=== PATIENT | male | born 1995 | race Two or more races ===

== ENCOUNTER → 2016-09-11 | Outpatient (REF) | payer OTHER | LOC: M SFHCPLAZ 11:02 | PROVIDERS: ATTEND Family Medicine | DX: F41.8 Other specified anxiety disorders (principal) ==

== ENCOUNTER → 2016-09-27 | Outpatient (REF) | payer OTHER ==
[2016-09-27 14:22] LABS: CONTROL LINE HPYORI INT CTR LINE PRESENT
== END ==
LOC: M SFHCPLAZ 11:13
PROVIDERS: ATTEND Family Medicine
DX: R10.13 Epigastric pain (principal)

== ENCOUNTER → 2017-01-31 | Outpatient (REF) | payer OTHER ==
[2017-01-31 16:23] LABS: ALBUMIN 4.8 GM/DL (3.2-5.2); ALBUMIN/GLOBULIN RATIO 1.55 (1.00-1.93); ALKALINE PHOSPHATASE 59 U/L (45-117); ALT/SGPT 18 U/L (12-78); ANION GAP 6 MEQ/L (8-16); AST/SGOT 13 U/L (15-37); BILIRUBIN,TOTAL 0.7 MG/DL (0.2-1.0); BLOOD UREA NITROGEN 11 MG/DL (7-18); CALCIUM LEVEL 9.6 MG/DL (8.5-10.1); CARBON DIOXIDE LEVEL 30 MEQ/L (21-32); CHLORIDE LEVEL 105 MEQ/L (98-107); CREATININE FOR GFR 1.04 MG/DL (0.70-1.30); GLOMERULAR FILTRATION RATE > 60.0 (>60); GLUCOSE, FASTING 79 MG/DL (70-105); POTASSIUM SERUM 4.6 MEQ/L (3.5-5.1); SODIUM LEVEL 141 MEQ/L (136-145); TOTAL PROTEIN 7.9 GM/DL (6.4-8.2)
== END ==
LOC: M SFHCPLAZ 14:09
PROVIDERS: ATTEND Family Medicine
DX: F41.8 Other specified anxiety disorders (principal)

== ENCOUNTER → 2017-09-10 | Outpatient (REF) | payer OTHER ==
[2017-09-10 18:02] LABS: ALBUMIN 4.3 GM/DL (3.2-5.2); ALBUMIN/GLOBULIN RATIO 1.59 (1.00-1.93); ALKALINE PHOSPHATASE 60 U/L (45-117); ALT/SGPT 19 U/L (12-78); ANION GAP 7 MEQ/L (8-16); AST/SGOT 14 U/L (7-37); BILIRUBIN,TOTAL 0.3 MG/DL (0.2-1.0); BLOOD UREA NITROGEN 12 MG/DL (7-18); CARBON DIOXIDE LEVEL 28 MEQ/L (21-32); CHLORIDE LEVEL 109 MEQ/L (98-107); GLOMERULAR FILTRATION RATE > 60.0 (>60); GLUCOSE, FASTING 67 MG/DL (70-100); POTASSIUM SERUM 4.5 MEQ/L (3.5-5.1); SODIUM LEVEL 144 MEQ/L (136-145)
== END ==
LOC: M SFHCPLAZ 16:05
DX: R74.8 Abnormal levels of other serum enzymes (principal)
CPT/HCPCS: 80053

== ENCOUNTER 2018-12-23 14:39 | Day surgery (SDC) | payer OTHER ==
[~2018-12-23] VITALS: Ht 175.3 cm; Wt 76.4 kg
[2018-12-23] MEDS ORDERED: DULO1CAP PO (14:47)
[2018-12-23 15:28] LABS: BASO % 0.3 % (0.0-1.0); EOS # 0.1 10^3/uL (0.0-0.50); EOS % 0.6 % (0.0-3.0); HEMATOCRIT 45.4 % (42.0-52.0); HEMOGLOBIN 15.4 g/dl (13.5-17.5); LYMPH # 2.4 10^3/uL (1.5-6.5); LYMPH % 21.6 % (24.0-44.0); MEAN CORPUSCULAR HEMOGLOBIN 30.1 pg (27.0-33.0); MEAN CORPUSCULAR HGB CONC 33.9 g/dl (32.0-36.5); MEAN CORPUSCULAR VOLUME 88.8 fl (80.0-96.0); NEUTROPHILS # 7.4 10^3/uL (1.8-7.7); NEUTROPHILS % 68.2 % (36.0-66.0); PLATELET COUNT, AUTOMATED 219 10^3/uL (150-450); RED BLOOD COUNT 5.11 10^6/uL (4.30-6.10); WHITE BLOOD COUNT 10.9 10^3/uL (4.0-10.0)
[2018-12-23 15:58] LABS: ALBUMIN 4.4 GM/DL (3.2-5.2); ALT/SGPT 31 U/L (12-78); BILIRUBIN,DIRECT 0.2 MG/DL (0.0-0.2); BILIRUBIN,TOTAL 0.8 MG/DL (0.2-1.0); BLOOD UREA NITROGEN 11 MG/DL (7-18); CALCIUM LEVEL 9.6 MG/DL (8.5-10.1); CARBON DIOXIDE LEVEL 28 MEQ/L (21-32); CHLORIDE LEVEL 105 MEQ/L (98-107); CREATININE FOR GFR 1.08 MG/DL (0.70-1.30); GLOMERULAR FILTRATION RATE > 60.0 (>60); GLUCOSE, FASTING 89 MG/DL (70-100); LIPASE 98 U/L (73-393); POTASSIUM SERUM 4.1 MEQ/L (3.5-5.1); SODIUM LEVEL 141 MEQ/L (136-145); TOTAL PROTEIN 7.5 GM/DL (6.4-8.2)
[2018-12-23] MEDS ORDERED: ISOVUE-370 76% 100ML VIAL (Q9967) As Ordered ONE (16:05)
[2018-12-23] MEDS ORDERED: KETOROLAC 30 MG/ML VIAL (J1885) IV ONE (16:15)
[2018-12-23] MEDS ORDERED: ONDANSETRON 4MG/2ML VIAL (J2405) IV ONE (16:15)
[2018-12-23] MEDS ORDERED: NS 1,000 ML IV ONE (16:15)
--- NOTE | 2018-12-23 17:44 | REP ---
Clinical: Right lower quadrant pain. Technique: Real time cutler scale and color evaluation using curved array transducer. Findings: A dilated blind ending tubular structure in the right lower quadrant measures greater than 9 mm diameter with adjacent free fluid and small adjacent calcification. Findings are most suggestive of acute appendicitis and possibly ruptured appendicitis with adjacent appendicolith and fluid. Impression: Findings most compatible with acute appendicitis possibly ruptured appendicitis with adjacent free fluid and appendicolith. Electronically Signed by George Obrien MD 12/23/2018 05:35 P
--- NOTE | 2018-12-23 19:43 | REP ---
Clinical: Right lower quadrant pain. Technique: Axial noncontrast images from the lung bases to the pubic symphysis with coronal and sagittal re-formations. Findings: Dilated fluid-filled appendix measures 12.5 mm maximal diameter with periappendiceal stranding and appendicolith consistent with acute appendicitis. No drainable collection/abscess or free air to suggest perforation. Remainder of the small large bowel is unremarkable. Liver, spleen, pancreas, gallbladder, bilateral adrenal glands and kidneys are normal. Pelvis demonstrates partially collapsed normal bladder and age appropriate prostate/seminal vesicles. No ascites. No free air. No adenopathy. Abdominal aorta without aneurysm. Musculoskeletal structures are intact. Impression: Findings compatible with acute appendicitis. No drainable collection/abscess or evidence for rupture. Electronically Signed by George Obrien MD 12/23/2018 07:34 P
[2018-12-23] MEDS: LR 1,000 ML IV SCH (21:04)
[2018-12-23] MEDS ORDERED: MORPHINE 4 MG/ML 1ML VIAL/SYRINGE (J2270) IV PRN (21:15)
[2018-12-23] MEDS ORDERED: KETOROLAC 30 MG/ML VIAL (J1885) IV PRN ×2 (21:15→23:45)
[2018-12-23] MEDS ORDERED: PIPERACILLIN/TAZOBACTAM SOD 3.375 GM in D5W MINI-BAG PLUS 50 ML IV ONE (21:15)
[2018-12-23] MEDS ORDERED: ONDANSETRON 4MG/2ML VIAL (J2405) IV PRN ×2 (21:15→23:45)
[2018-12-23] MEDS ORDERED: LIDOCAINE 2% INJ 100 MG/5 ML SDV (FOR ANES.) As Ordered ONE (21:24)
[2018-12-23] MEDS ORDERED: PROPOFOL 200 MG/20 ML VIAL As Ordered ONE ×2 (21:24→23:29)
[2018-12-23] MEDS ORDERED: ROCURONIUM BROMIDE 50 MG/5 ML VIAL As Ordered ONE (21:25)
[2018-12-23] MEDS ORDERED: dexameTHASONE 4 MG/ML 1ML VIAL (J1100) As Ordered ONE (21:25)
[2018-12-23] MEDS ORDERED: MIDAZOLAM INJ 2 MG/2 ML VIAL (J2250) As Ordered ONE (21:26)
[2018-12-23] MEDS ORDERED: fentaNYL 100 MCG/2 ML INJECTION (J3010) As Ordered ONE ×2 (21:27→22:33)
[2018-12-23] MEDS ORDERED: ONDANSETRON 4MG/2ML VIAL (J2405) As Ordered ONE (21:29)
[2018-12-23] MEDS ORDERED: BUPIVACAINE HCL 0.25% 30 ML VIAL As Ordered ONE (22:32)
[2018-12-23] MEDS ORDERED: KETOROLAC 60 MG/2 ML VIAL (J1885) As Ordered ONE (23:01)
[2018-12-23] MEDS ORDERED: SUGAMMADEX SODIUM 500 MG/5 ML VIAL (BRIDION) As Ordered ONE (23:02)
[2018-12-23] MEDS ORDERED: PERCOCET 5MG/325MG TAB PO PRN (23:45)
[2018-12-23] MEDS ORDERED: LR 1,000 ML IV SCH (23:45)
[2018-12-23] MEDS ORDERED: fentaNYL 100 MCG/2 ML INJECTION (J3010) IV PRN (23:45)
[2018-12-24] MEDS ORDERED: ACETAMINOPHEN TAB 650MG DOSE (2X325MG) PO PRN (00:15)
[2018-12-24] MEDS ORDERED: KETAMINE HCL 200 MG/20 ML VIAL As Ordered ONE (00:35)
[2018-12-24 00:45] VITALS: BP 109/57
[2018-12-24 01:15] VITALS: BP 106/56
[2018-12-24] MEDS: NORCO, ANEXSIA 5/325MG TABLET (HYDROcodone/ACETAMINOPHEN) PO PRN ×2 (01:56→09:05)
[2018-12-24 02:15] VITALS: BP 110/58
[2018-12-24 03:15] VITALS: BP 115/56
[2018-12-24] MEDS ORDERED: PIPERACILLIN/TAZOBACTAM SOD 3.375 GM in D5W MINI-BAG PLUS 50 ML IV SCH (04:00)
[2018-12-24] MEDS: LR 1,000 ML IV SCH (05:04)
[2018-12-24 07:55] VITALS: BP 123/64
[2018-12-24] MEDS ORDERED: DULoxetine 20 MG CAP (CYMBALTA) PO SCH (09:00)
[2018-12-24 12:00] VITALS: BP 137/76
[2018-12-24] MEDS ORDERED: HYDR-4571 PO (15:25)
--- NOTE | 2018-12-24 16:56 | IPN ---
DATE: 12/24/2018 HISTORY: The patient underwent a laparoscopic appendectomy for acute appendicitis yesterday evening ending just before midnight. He was advanced to clear liquids and regular food this morning. He has been up to ambulate and is voiding well. He has had one pain pill being one Diamond [place] tablet about 9 o'clock this morning. Vital signs: The patient has remained afebrile since about 1 o'clock in the morning when he had a very low grade temp. His pulse is in the 70s and 80s in his blood pressure is good. Intake and output shows that he has had 1500 in with 2100 of urine output today. PHYSICAL EXAMINATION: The patient is sitting up in bed. He is alert and oriented. Abdomen shows active bowel sounds and is soft without any undue tenderness. His dressings are dry. IMPRESSION: The patient is doing very well postop day #1 from his laparoscopic appendectomy. PLAN: The patient was counseled regarding activity, diet, wound care and pain medications as well as a discussion about his return to work. He appears ready for discharge and will be sent home today. He will be provided a prescription for a small number of Diamond [place] tablets to take as needed. He will call the office for any problems and I have recommended the follow up in the office in about 10 days for routine postop visit.
--- NOTE | 2018-12-24 18:56 | RO ---
DATE OF PROCEDURE: 12/23/2018 PREOPERATIVE DIAGNOSIS: Acute appendicitis. POSTOPERATIVE DIAGNOSES: Acute appendicitis. PROCEDURE PERFORMED: Laparoscopic appendectomy. SURGEON: Dr. Song ANESTHESIA: General. INDICATIONS FOR PROCEDURE: Patient is a 23-year-old man who presented to the emergency department with a 6 to 8 hour history of abdominal pain becoming more severe and localizing in the right lower quadrant. He was found to have significant tenderness. His laboratory studies were unremarkable. A CT scan confirmed marked inflammation of the appendix and he is now for laparoscopic appendectomy. OPERATIVE PROCEDURE: The patient was placed supine on the operating table. He was placed under general endotracheal anesthesia. The patient's abdomen was prepped and draped in a sterile fashion. 0.25% Marcaine was infiltrated at each of the trocar sites prior to incision. A short incision was made right in the middle of the umbilicus extending longitudinally to the top of the umbilicus. This was deepened through the subcutaneous tissues. A very small umbilical fascial defect was identified and this was extended to allow placement of a trocar. Initially a 5-mm port was placed and the abdomen was insufflated and this was then replaced by a 12 mm trocar. The laparoscope was inserted. The patient was noted to have a normal liver and gallbladder. Visualized portions of the stomach small and large bowel appeared normal with the exception of a small inflamed area low in the right lower quadrant just inferior to the cecum. This was noted to be the inflamed appendix. A 5-mm port was placed in the left lower quadrant and a second 5 mm port was placed just to the right of the midline in the right lower quadrant. The patient was tilted to a slight Trendelenburg position and rolled slightly to the left. Graspers were inserted. The appendix was grasped and elevated. The appendix was noted be quite dilated and erythematous and it was coated in areas with exudate. Portions of the mesoappendix were then divided using the hook cautery to allow greater mobility. An opening was created through the mesoappendix adjacent to the appendix itself. The appendix was then stapled its base with a 45 mm linear cutter endoscopic stapler with a blue load. The mesoappendix was then divided with a white load of the same stapler. Some bleeding along the mesoappendix was controlled with cautery. The appendix was placed in an Endopouch. The right lower quadrant was irrigated and inspected and there was no evidence of any further bleeding and the stapled closure of the appendiceal stump looked good. The patient was returned to a flat position. The abdomen was deflated and the trocars were removed. The appendix was recovered through the umbilical incision. The edges of the fascia were then trimmed slightly to allow a better closure of the fascia. The peritoneum was closed with a single suture of Vicryl. The mesentery. The fascia rather was then closed longitudinally with interrupted simple sutures of 2-0 Vicryl. The skin incisions were all closed with buried Vicryl sutures and Steri-Strips. Some additional local anesthesia was infiltrated around the incisions. Light dressings were applied. The patient tolerated the procedure well without apparent complication. He was awakened in the operating room, extubated and moved to the recovery room in stable condition.
== END 2018-12-24 16:00 | disposition home or self-care (01) ==
LOC: M ED 14:39 → M SDC 21:04 → M PED 12-24 00:39 → M SDC 12-24 16:00
PROVIDERS: ATTEND Surgery
DX: K35.890 Other acute appendicitis without perforation or gangrene (principal); F32.9 Major depressive disorder, single episode, unspecified; Z79.899 Other long term (current) drug therapy
CPT/HCPCS: 44970; 74176; 76857; 80048; 80076; 81001; 83605; 83690; 85025; 88302; 96374; 96375; 96376; 99284; J1100; J1885; J2250; J2405; J2543; J3010

== ENCOUNTER → 2019-02-26 | Outpatient (REF) | payer OTHER ==
[~2019-02-26] MED LIST: DULO1CAP4 PO; HYDR-4571 PO
[2019-02-26 10:25] LABS: CHOLESTEROL LEVEL 192 MG/DL (<200); CHOLESTEROL RISK RATIO 3.428 (<5); HDL CHOLESTEROL 56 MG/DL (>40); LDL CHOLESTEROL 106 MG/DL (<100); NON-HDL-C 136 MG/DL; TRIGLYCERIDES LEVEL 150 MG/DL (<150)
[2019-02-26 11:14] LABS: HIV 1&2 SCREEN CENTAUR NEGATIVE (NEGATIVE)
[2019-02-26 12:06] LABS: CHLAMYDIA DNA AMPLIFICATION NEGATIVE (NEGATIVE); GC DNA AMPLIFICATION NEGATIVE (NEGATIVE)
== END ==
LOC: M SFHCPLAZ 08:19
PROVIDERS: ATTEND Family Medicine
DX: Z20.2 Contact with and (suspected) exposure to infections with a predominantly sexual mode of transmission (principal); Z13.220 Encounter for screening for lipoid disorders

== ENCOUNTER → 2019-04-07 | Outpatient (CLI) | payer OTHER ==
--- NOTE | 2019-04-08 08:09 | REP ---
Left knee series: Two views. History: Pain in the left knee. Comparison left knee radiographs are from October 16, 2005. Findings: AP and lateral views of the left knee show a normal fabella. Bones joints and soft tissues are unremarkable. Impression: Unremarkable radiographs of the left knee. Two-view study. Electronically Signed by Zbigniew Arciniega MD 04/07/2019 02:51 P
== END ==
LOC: M RAD 14:12
PROVIDERS: ATTEND Family Medicine
DX: M25.562 Pain in left knee (principal)

== ENCOUNTER → 2019-10-30 | Outpatient (RCR) | payer OTHER ==
[~2019-10-30] MED LIST changes: +PRIL20TA2 PO
== END ==
LOC: M PT 10-14 12:06
PROVIDERS: ATTEND Family Medicine
DX: Z51.89 Encounter for other specified aftercare (principal); M25.562 Pain in left knee
CPT/HCPCS: 97032; 97110; 97162; G0283

== ENCOUNTER 2019-11-13 12:09 | Outpatient (RCR) | payer OTHER | END 2019-11-30 | LOC: M PT 12:09 | PROVIDERS: ATTEND Family Medicine | DX: Z51.89 Encounter for other specified aftercare (principal); M25.562 Pain in left knee | CPT/HCPCS: 97110; G0283 ==

== ENCOUNTER → 2020-06-22 | Outpatient (CLI) | payer SELFPAY | LOC: M LABSMTC 14:49 | PROVIDERS: ATTEND Pediatrics | DX: Z20.828 Contact with and (suspected) exposure to other viral communicable diseases (principal) ==

== ENCOUNTER 2020-09-14 08:43 | Inpatient (IN) | payer OTHER, SELFPAY ==
[~2020-09-14] VITALS: Ht 180.3 cm; Wt 74.1 kg
[2020-09-14 09:45] LABS: HEMATOCRIT 46.7 % (42.0-52.0); HEMOGLOBIN 15.9 g/dl (13.5-17.5); MEAN CORPUSCULAR HEMOGLOBIN 30.5 pg (27.0-33.0); MEAN CORPUSCULAR VOLUME 89.6 fl (80.0-96.0); PLATELET COUNT, AUTOMATED 292 10^3/uL (150-450); RED BLOOD COUNT 5.21 10^6/uL (4.30-6.10); WHITE BLOOD COUNT 5.3 10^3/uL (4.0-10.0)
[2020-09-14 10:12] LABS: AMPHETAMINES LEVEL URINE NEGATIVE (NEGATIVE); BARBITURATES URINE NEGATIVE (NEGATIVE); BENZODIAZEPINES URINE NEGATIVE (NEGATIVE); CANNABINOIDS URINE NEGATIVE (NEGATIVE); COCAINE METABOLITE URINE NEGATIVE (NEGATIVE); METHADONE URINE NEGATIVE (NEGATIVE); OPIATES URINE NEGATIVE (NEGATIVE); PHENCYCLIDINE URINE NEGATIVE (NEGATIVE)
[2020-09-14 10:22] LABS: ACETAMINOPHEN LEVEL < 2.0 UG/ML (10.0-30.0); ALBUMIN 4.7 GM/DL (3.2-5.2); ALT/SGPT 49 U/L (12-78); BILIRUBIN,DIRECT 0.2 MG/DL (0.0-0.2); BILIRUBIN,TOTAL 0.5 MG/DL (0.2-1.0); BLOOD UREA NITROGEN 9 MG/DL (7-18); CALCIUM LEVEL 9.3 MG/DL (8.5-10.1); CARBON DIOXIDE LEVEL 25 MEQ/L (21-32); CHLORIDE LEVEL 106 MEQ/L (98-107); CREATININE FOR GFR 0.87 MG/DL (0.70-1.30); ETHYL ALCOHOL (ETHANOL) 0.046 % (0.000-0.010); GLOMERULAR FILTRATION RATE > 60.0 (>60); GLUCOSE, FASTING 86 MG/DL (70-100); SALICYLATE LEVEL < 1.7 MG/DL (5.0-30.0); SODIUM LEVEL 142 MEQ/L (136-145); TOTAL PROTEIN 7.6 GM/DL (6.4-8.2)
[2020-09-14 11:52] LABS: RSV AMPLIFICATION NEGATIVE (NEGATIVE)
[2020-09-14] MEDS ORDERED: ACETAMINOPHEN TAB 650MG DOSE (2X325MG) PO PRN (12:30)
[2020-09-14] MEDS ORDERED: MAALOX 30 ML SUSP *UDC PO PRN (12:30)
[2020-09-14] MEDS ORDERED: MOM 30ML SUSPENSION UDC PO PRN (12:30)
[2020-09-14 14:51] VITALS: BP 140/100
[2020-09-14] MEDS: traZODone 50 MG TAB PO PRN (21:04)
[2020-09-15 06:27] VITALS: BP 136/73
--- NOTE | 2020-09-15 11:13 | HPEPDOC ---
[facility] Medical History & Physical Date of Admission Sep 14, 2020 Date of Service: Sep 15, 2020 History and Physical HOSPITALIST MEDICAL HISTORY AND PHYSICAL EXAMINATION DICTATED If note is needed urgently, pls call hypertype at [phone] Howard's MEDICAL H&P job #[id number] Vital Signs Vital Signs Date Time Temp Pulse Resp B/P (MAP) Pulse Ox O2 Delivery O2 Flow Rate FiO2 09/15/20 06:27 98.4 89 16 136/73 (94) 98 Room Air Laboratory Data Labs 24H Laboratory Tests 2 09/14/20 11:06: Coronavirus (COVID-19)(PCR) NEGATIVE, Influenza Type A (RT-PCR) NEGATIVE, Influenza Type B (RT-PCR) NEGATIVE, Respiratory Syncytial Virus (PCR) NEGATIVE Home Medications No Active Prescriptions or Reported Meds Allergies Coded Allergies: Sulfa (Sulfonamide Antibiotics) (Verified Allergy, Intermediate, HIVES/RASH, 09/14/20) povidone-iodine (Verified Allergy, Intermediate, SKIN BLISTERED, PEELED, 09/14/20) soap (Verified Allergy, Intermediate, SKIN BLISTERED, PEELED, 09/14/20) Kiwi (Verified Adverse Reaction, Intermediate, rash, 09/14/20) A-FIB/CHADSVASC A-FIB History Current/History of A-Fib/PAF?: No Current PO Anticoag Therapy: No Age/Risk Factor Scoring CHADSVASC: CHADSVASC Response (Comments) Value Age Risk Factor Age < 65 years old 0 Gender Risk Factor Male 0 Hx of CHF No 0 Hx of HTN No 0 Hx of Stroke/TIA/or VTE No 0 Hx of Diabetes No 0 Hx of Vascular Disease No 0 Total 0 Treatment Treatment ordered: NONE BELÉN HOWARD MD Sep 15, 2020 11:04
[2020-09-15] MEDS ORDERED: ALPRAZolam 0.5 MG TAB PO ONE (11:15)
[2020-09-15] MEDS: hydrOXYzine 50 MG TAB PO PRN ×2 (12:10→20:38)
[2020-09-15] MEDS: OMEPRAZOLE 20 MG CAP PO SCH (12:10)
--- NOTE | 2020-09-15 13:11 | HPE ---
HISTORY AND PHYSICAL DATE OF ADMISSION: 09/14/2020 DATE OF SERVICE: 09/15/2020 CHIEF COMPLAINT: Routine Medical History and Physical in a psychiatric patient. Also complains of palpitations and dizziness. HISTORY OF PRESENT ILLNESS: This is a 25-year-old male with a history of depression/anxiety, dyspepsia admitted to the Inpatient Mental Health Unit for severe depression, complained of dizziness and palpitations yesterday as well as weight loss down to 155 pounds from previous 180 pounds due to stress and poor appetite. Patient [facility] with [facility] Physician Dr. Taryn Mckeon with normal TSH level. He has not had any family history of early onset cancer and otherwise denies any constitutional symptoms, unusual lymphadenopathy or lumps and nodules or any cough, shortness of breath, smoking history, changes in bowel habits, dysphagia, odynophagia, GI bleed and has otherwise been in his usual state of health aside from his severe depression and poor appetite. Patient has not been sleeping well as well, but says that yesterday when he was admitted he was able to sleep. He is now requesting anti-anxiety medications. For the patient's weight loss patient's TSH was normal. He otherwise denies any prior history of lymphoma, no GI symptoms to suspect colonic malignancy, no prior history of smoking or respiratory complaints to suspect lung CA. patient has otherwise no other alert symptoms aside from the weight loss for the past year. He denies any dysuria, urgency, frequency, sore throat, polyphagia, polydipsia, polyuria. Random glucose was 86. No other symptoms of diabetes to suspect that weight loss may be related to new onset of diabetes. No abdominal pain, nausea or vomiting. A1c was 5.2 on 01/31/2017. Previous blood work was last year in May with a fasting glucose of 94. Despite complaints of palpitations and dizziness patient has not had any syncopal episodes, diaphoresis, hypertension, hypertensive urgency to suspect pheochromocytoma. He denies any diarrhea or any recurrent dyspepsia to suspect gastrinoma. Hospitalist was asked to further evaluate patient's weight loss. PAST MEDICAL HISTORY: 1. Dyspepsia. 2. Depression/anxiety. 3. Weight loss. PAST SURGICAL HISTORY: 1. Tonsillectomy. 2. Appendectomy. 3. Bilateral tympanostomy. HOSPITAL MEDICATIONS: 1. Trazodone. 2. Acetaminophen. 3. Milk of Magnesia. 4. Mylanta. ALLERGIES: No known drug allergies. FAMILY HISTORY: Father alive, no medical problems. Mother alive, no medical problems. Maternal grandfather with depression. Paternal grandfather of cancer unknown type. SOCIAL HISTORY: Denies tobacco or recreational drug use. Social alcohol use about 2-3 drinks a week. Works - currently employed. REVIEW OF SYSTEMS: Per HPI, 12 point system otherwise negative. PHYSICAL EXAMINATION: Vital signs: Temperature 98.4, pulse 89, respiratory 16, blood pressure 136/73, 98% on room air. General: Patient is awake, alert, oriented times 3, answering questions appropriately. HEENT: Anicteric sclerae, no jaundice, no icterus, no pallor. Moist mucous membranes. Neck: No thyromegaly, cervical lymphadenopathy, JVD. No stridor. No carotid bruits. Lungs: Clear to auscultation, no wheezes, rhonchi or rales. No adventitious breath sounds. Patient has bronchial breath sounds throughout. Heart: S1 and S2, nondisplaced point of maximal impulse, regular rate and rhythm. Abdomen: Soft, nontender, nondistended, no CVA tenderness, positive bowel sounds times 4 quadrants, no guarding or rebound. Extremities: No cyanosis, clubbing or any pitting edema. Skin: Warm, dry, well perfused, pink in color. LABORATORY DATA: 09/14/2020: White count 5.3, hemoglobin 15, hematocrit 46, platelet count 292. Sodium 142, potassium 4, chloride 106, bicarb 25, BUN 9, creatinine 0.87, glucose 86. Calcium 9.3, total bilirubin 0.5, direct bilirubin 0.2, AST 31, ALT 49, alkaline phosphatase 53. Albumin 4.7. ASSESSMENT AND PLAN: [age] year old with anxiety/depression, dyspepsia, recent weight loss from 180 pounds to 155 pounds in the past year with normal TSH due to refusal to eat from stress and poor appetite. Patient denies any other alarm symptoms for any malignancy. Denies constitutional symptoms and has no lymphadenopathy to suspect lymphoma. No fever or chills, increased fatigue aside from weight loss. He also has no other convincing evidence for possible pheochromocytoma with normal blood pressure, no syncopal episode despite complaints of dizziness and palpitations therefore no further work-up for gastrinoma. Patient has no recurrent abdominal discomfort, no diarrhea. If patient should develop alarm symptoms such as lymphadenopathy he would benefit from CT chest, abdomen and pelvis to rule out lymphoma. He has no other alarm symptoms or constitutional symptoms to warrant imaging studies at this time. Psychiatrist to help with his severe depression. CODE STATUS: Full Code. MTDD
[2020-09-15] MEDS: busPIRone 5 MG TAB PO SCH ×2 (13:29→20:38)
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
[2020-09-15 15:44] LABS: HEMOGLOBIN A1c 4.9 %
[2020-09-15 16:34] VITALS: BP 121/79
[2020-09-15] MEDS: DULoxetine 20 MG CAP (CYMBALTA) PO SCH (20:38)
[2020-09-15] MEDS: traZODone 50 MG TAB PO PRN (22:08)
[2020-09-16 06:11] VITALS: BP 127/75
[2020-09-16] MEDS: OMEPRAZOLE 20 MG CAP PO SCH (08:26)
[2020-09-16] MEDS: busPIRone 5 MG TAB PO SCH ×2 (08:26→21:38)
[2020-09-16] MEDS: hydrOXYzine 50 MG TAB PO PRN (09:16)
--- NOTE | 2020-09-16 16:08 | MHIPNPDOC ---
[facility] Progress Note Progress Note DATE OF SERVICE: 09/16/20 Chief Complaint: "I have been suicidal after the breakup with my boyfriend.". History of Present Illness HISTORY OF THE PRESENT ILLNESS: Patient is a 25 -year-old Single, Employed, Domiciled male, who reports depression and suicidal ideation to hang himself after learning that his boyfriend of three years broke up with him and was seeing his cousin. 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 He states that [employer] is terminating Chat later in the year and that his position will also be eliminated. He reports that his relationship with boyfriend had been stressed lately. He and his cousin had become reacquainted when he returned to the area after he graduated from College. His boyfriend broke up with him and he didn't realize until recently that his boyfriend was romantically involved with his Cousin who had not divulged that he was gallagher. He states that his family is still processing the breakup, as well as, the Cousin coming out to the family. Patient had planned where he was going to hang himself vs not, had thought about where his cats would be (who would take care of them). PER ED REPORT: Patient reports recent breakup with his boyfriend of three years, which has been particularly difficult as his ex is now seeing his cousin. He reports previous h/o depression & was taking meds Rx by his PCP, however stopped a year ago because he was, "Doing great". He says that since the breakup he has been sleeping poorly, waking up at [phone], "Just thinking about it [the breakup]". He says that he has been having difficulty concentrating on his work & in general. He admits that what began as general thoughts of suicide a couple of weeks ago, has progressed to formulating a plan for hanging. He says that only his fear of who would feed/take care of his cats, deterred him from acting on the thoughts to this point. When asked how he felt about a few days in the hospital to initiate treatment & maintain safety, patient replied, "I'd be okay with that". VITAL SIGNS: See below. CURRENT MEDICATIONS: See below. MENTAL STATUS EXAMINATION: Patient is a 25 -year-old Single, Employed, Domiciled male, who reports depression and suicidal ideation to hang himself after learning that his boyfriend of three years broke up with him and was seeing his cousin. General Appearance: well groomed, appears stated age, hospital scrubs/clothing Build: thin Demeanor: guarded Eye Contact: average Behavior: cooperative Speech: reg/rate,rhythm,volume Mood: depressed, anxious Affect: constricted Thought Process: logical/linear Thought Content (Delusions): none reported Thought Content (Other): guarded Thought Content (Aggressive): none reported Perception (Hallucinations): none reported Perception (Other): none reported Cognition (Impairment of): none reported Cognition(Intelligence Est.): above average Oriented: Awake, Alert, Oriented times three Insight: fair Judgment: Fair Psychosis: Denies DIAGNOSES: Adjustment Disorder with Mixed Anxiety and Depressed Mood ASSESSMENT: Patient reports minimal decrease in depression, continued anxiety and feelings of betrayal. He denied continued suicidality. He was reserved in the interview. He reports limited supports but had a future oriented statement, he reports wanting to renovate his bathroom. Patient had recently purchased a home but had stopped working on any projects because he had no intentions of finishing them. Patient continues to need supports. Encouraged patient to use Employee Assistance Program for free counseling. Patient lives alone and this el evates his risk without good supports that are living nearby. MANAGEMENT PLAN: continue all medications as prescribed TIME SPENT: 30 minutes. Vital Signs Vital Signs Date Time Temp Pulse Resp B/P (MAP) Pulse Ox O2 Delivery O2 Flow Rate FiO2 09/16/20 06:11 98.2 89 18 127/75 (92) 98 Room Air Current Medications Current Medications Medications (Trade) Dose Ordered Sig/Ligia Route PRN Reason Start Time Stop Time Status Last Admin Dose Admin Acetaminophen (Tylenol Tab) 650 mg Q6HP PRN PO HEADACHE or DISCOMFORT 09/14/20 12:30 Al Hydrox/Mg Hydrox/Simethicone (Mylanta) 30 ml Q4HP PRN PO HEARTBURN/INDIGESTION 09/14/20 12:30 Buspirone HCl (Buspar) 5 mg BID PO 09/15/20 09:00 09/16/20 08:26 Duloxetine HCl (Cymbalta) 20 mg QHS PO 09/15/20 21:00 09/15/20 20:38 Home Med (Med Rec Complete!) ASDIRECTED XX 09/14/20 12:05 09/14/20 12:07 DC Hydroxyzine HCl (Atarax) 50 mg Q6HP PRN PO anxiety/agitation 09/15/20 11:30 09/16/20 09:16 Magnesium Hydroxide (Milk Of Magnesia) 30 ml DAILYPRN PRN PO CONSTIPATION 09/14/20 12:30 Omeprazole (PriLOSEC) 40 mg DAILY PO 09/15/20 09:00 09/16/20 08:26 Trazodone HCl (Desyrel) 50 mg QHSP PRN PO INSOMNIA 09/14/20 12:30 09/15/20 22:08 Allergies Coded Allergies: Sulfa (Sulfonamide Antibiotics) (Verified Allergy, Intermediate, HIVES/RASH, 09/14/20) povidone-iodine (Verified Allergy, Intermediate, SKIN BLISTERED, PEELED, 09/14/20) soap (Verified Allergy, Intermediate, SKIN BLISTERED, PEELED, 09/14/20) Kiwi (Verified Adverse Reaction, Intermediate, rash, 09/14/20) PERNELL VOGT NP Sep 16, 2020 16:08
[2020-09-16 18:44] VITALS: BP 140/74
[2020-09-16] MEDS: DULoxetine 20 MG CAP (CYMBALTA) PO SCH (21:38)
[2020-09-16] MEDS: traZODone 50 MG TAB PO PRN (21:38)
[2020-09-17 06:00] VITALS: BP 118/73
[2020-09-17] MEDS: busPIRone 5 MG TAB PO SCH ×2 (08:39→20:20)
[2020-09-17] MEDS: OMEPRAZOLE 20 MG CAP PO SCH (08:39)
--- NOTE | 2020-09-17 10:28 | MHIPNPDOC ---
[facility] Progress Note Progress Note DATE OF SERVICE: 09/17/20 Chief Complaint: "I have been suicidal after the breakup with my boyfriend.". History of Present Illness HISTORY OF THE PRESENT ILLNESS: Patient is a 25 -year-old Single, Employed, Domiciled male, who reports depression and suicidal ideation to hang himself after learning that his boyfriend of three years broke up with him and was seeing his cousin. 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 He states that [employer] is terminating Chat later in the year and that his position will also be eliminated. He reports that his relationship with boyfriend had been stressed lately. He and his cousin had become reacquainted when he returned to the area after he graduated from College. His boyfriend broke up with him and he didn't realize until recently that his boyfriend was romantically involved with his Cousin who had not divulged that he was gallagher. He states that his family is still processing the breakup, as well as, the Cousin coming out to the family. Patient had planned where he was going to hang himself vs not, had thought about where his cats would be (who would take care of them). PER ED REPORT: Patient reports recent breakup with his boyfriend of three years, which has been particularly difficult as his ex is now seeing his cousin. He reports previous h/o depression & was taking meds Rx by his PCP, however stopped a year ago because he was, "Doing great". He says that since the breakup he has been sleeping poorly, waking up at [phone], "Just thinking about it [the breakup]". He says that he has been having difficulty concentrating on his work & in general. He admits that what began as general thoughts of suicide a couple of weeks ago, has progressed to formulating a plan for hanging. He says that only his fear of who would feed/take care of his cats, deterred him from acting on the thoughts to this point. When asked how he felt about a few days in the hospital to initiate treatment & maintain safety, patient replied, "I'd be okay with that". VITAL SIGNS: See below. CURRENT MEDICATIONS: See below. MENTAL STATUS EXAMINATION: Patient is a 25 -year-old Single, Employed, Domiciled male, who reports depression and suicidal ideation to hang himself after learning that his boyfriend of three years broke up with him and was seeing his cousin. General Appearance: well groomed, appears stated age, hospital scrubs/clothing Build: thin Demeanor: guarded Eye Contact: average Behavior: cooperative Speech: reg/rate,rhythm,volume Mood: depressed, anxious Affect: constricted Thought Process: logical/linear Thought Content (Delusions): none reported Thought Content (Other): guarded Thought Content (Aggressive): none reported Perception (Hallucinations): none reported Perception (Other): none reported Cognition (Impairment of): none reported Cognition(Intelligence Est.): above average Oriented: Awake, Alert, Oriented times three Insight: fair Judgment: Fair Psychosis: Denies DIAGNOSES: Adjustment Disorder with Mixed Anxiety and Depressed Mood ASSESSMENT: Patient was requesting to be discharged today, due to the severity and detailed plans of his suicide, patient is to continue hospitalization. He is in agreement. Treatment team also feels strongly that patient needs continued monitoring. He is compliant with medications, treatment modalities and visible on the milieu. He reports decreased depression but continued anxiety. He has voiced some future oriented plans such as renovating his home, requesting note for work to allow him to stop by 6:00 for appointments. MANAGEMENT PLAN: continue all medications as prescribed TIME SPENT: 30 minutes. Vital Signs Vital Signs Date Time Temp Pulse Resp B/P (MAP) Pulse Ox O2 Delivery O2 Flow Rate FiO2 09/17/20 06:00 98.0 82 20 118/73 (88) 100 09/16/20 06:11 Room Air Current Medications Current Medications Medications (Trade) Dose Ordered Sig/Ligia Route PRN Reason Start Time Stop Time Status Last Admin Dose Admin Acetaminophen (Tylenol Tab) 650 mg Q6HP PRN PO HEADACHE or DISCOMFORT 09/14/20 12:30 Al Hydrox/Mg Hydrox/Simethicone (Mylanta) 30 ml Q4HP PRN PO HEARTBURN/INDIGESTION 09/14/20 12:30 Buspirone HCl (Buspar) 5 mg BID PO 09/15/20 09:00 09/17/20 08:39 Duloxetine HCl (Cymbalta) 20 mg QHS PO 09/15/20 21:00 09/16/20 21:38 Home Med (Med Rec Complete!) ASDIRECTED XX 09/14/20 12:05 09/14/20 12:07 DC Hydroxyzine HCl (Atarax) 50 mg Q6HP PRN PO anxiety/agitation 09/15/20 11:30 09/16/20 09:16 Magnesium Hydroxide (Milk Of Magnesia) 30 ml DAILYPRN PRN PO CONSTIPATION 09/14/20 12:30 Omeprazole (PriLOSEC) 40 mg DAILY PO 09/15/20 09:00 09/17/20 08:39 Trazodone HCl (Desyrel) 50 mg QHSP PRN PO INSOMNIA 09/14/20 12:30 09/16/20 21:38 Allergies Coded Allergies: Sulfa (Sulfonamide Antibiotics) (Verified Allergy, Intermediate, HIVES/RASH, 09/14/20) povidone-iodine (Verified Allergy, Intermediate, SKIN BLISTERED, PEELED, 09/14/20) soap (Verified Allergy, Intermediate, SKIN BLISTERED, PEELED, 09/14/20) Kiwi (Verified Adverse Reaction, Intermediate, rash, 09/14/20) PERNELL VOGT NP Sep 17, 2020 10:28
[2020-09-17 16:14] VITALS: BP 109/57
[2020-09-17] MEDS: DULoxetine 20 MG CAP (CYMBALTA) PO SCH (20:20)
[2020-09-17] MEDS: traZODone 50 MG TAB PO PRN (23:12)
[2020-09-18 06:16] VITALS: BP 100/59
[2020-09-18] MEDS: OMEPRAZOLE 20 MG CAP PO SCH (07:58)
[2020-09-18] MEDS: busPIRone 5 MG TAB PO SCH ×2 (07:58→20:34)
--- NOTE | 2020-09-18 13:42 | MHIPNPDOC ---
[facility] Progress Note Progress Note DATE OF SERVICE: 09/18/20 HISTORY: History of Present Illness HISTORY OF THE PRESENT ILLNESS: Patient is a 25 -year-old Single, Employed, Domiciled male, who reports depression and suicidal ideation to hang himself after learning that his boyfriend of three years broke up with him and was seeing his cousin. 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 He states that [employer] is terminating Chat later in the year and that his position will also be eliminated. He reports that his relationship with boyfriend had been stressed lately. He and his cousin had become reacquainted when he returned to the area after he graduated from College. His boyfriend broke up with him and he didn't realize until recently that his boyfriend was romantically involved with his Cousin who had not divulged that he was gallagher. He states that his family is still processing the breakup, as well as, the Cousin coming out to the family. Patient had planned where he was going to hang himself vs not, had thought about where his cats would be (who would take care of them). PER ED REPORT: Patient reports recent breakup with his boyfriend of three years, which has been particularly difficult as his ex is now seeing his cousin. He reports previous h/o depression & was taking meds Rx by his PCP, however stopped a year ago because he was, "Doing great". He says that since the breakup he has been sleeping poorly, waking up at [phone], "Just thinking about it [the breakup]". He says that he has been having difficulty concentrating on his work & in general. He admits that what began as general thoughts of suicide a couple of weeks ago, has progressed to formulating a plan for hanging. He says that only his fear of who would feed/take care of his cats, deterred him from acting on the thoughts to this point. When asked how he felt about a few days in the hospital to initiate treatment & maintain safety, patient replied, "I'd be okay with that". Patient requests from nurses to increase his Cymbalta aids to me that he was so depressed he couldn't focus. He couldn't eat any definite plans to hurt himself. He states he is now feeling better. His mood is improved. His affect is brighter. I increased his Cymbalta to 30 mg VITAL SIGNS: See below. NEW TEST RESULTS: CURRENT MEDICATIONS: See below. MENTAL STATUS EXAMINATION: Patient is a 25-year old male, who is walking the halls, cooperative and clear. Speech: Is. No gross disturbance. Language skills are gross disturbance. Thought processes including:. No gross disturbance. Thought content:, Mood improved. Abstract reasoning, and computation:, Able to abstract. Description of associations: Was association. Description of abnormal or psychotic thoughts:, No psychotic thoughts. Judgment: Improved. Insight: Good. Orientation: 3. Recent and remote memory: Intact. Attention span and concentration: Intact. Language:. No disturbance. Fund of knowledge: Reasonable. Mood: Euthymic. Affect:, Congruent. DIAGNOSES: 1. Adjustment disorder with depressed mood. 2. None. 3.. None. Relationship stressors. ASSESSMENT: As above MANAGEMENT PLAN:. As per Diana Phillips. TIME SPENT: 20 minutes. Vital Signs Vital Signs Date Time Temp Pulse Resp B/P (MAP) Pulse Ox O2 Delivery O2 Flow Rate FiO2 09/18/20 06:16 98.4 91 16 100/59 (73) 100 Room Air Current Medications Current Medications Medications (Trade) Dose Ordered Sig/Ligia Route PRN Reason Start Time Stop Time Status Last Admin Dose Admin Acetaminophen (Tylenol Tab) 650 mg Q6HP PRN PO HEADACHE or DISCOMFORT 09/14/20 12:30 Al Hydrox/Mg Hydrox/Simethicone (Mylanta) 30 ml Q4HP PRN PO HEARTBURN/INDIGESTION 09/14/20 12:30 Buspirone HCl (Buspar) 5 mg BID PO 09/15/20 09:00 09/18/20 07:58 Duloxetine HCl (Cymbalta) 20 mg QHS PO 09/15/20 21:00 09/18/20 13:33 DC 09/17/20 20:20 Duloxetine HCl (Cymbalta) 30 mg QHS PO 09/18/20 21:00 Home Med (Med Rec Complete!) ASDIRECTED XX 09/14/20 12:05 09/14/20 12:07 DC Hydroxyzine HCl (Atarax) 50 mg Q6HP PRN PO anxiety/agitation 09/15/20 11:30 09/16/20 09:16 Magnesium Hydroxide (Milk Of Magnesia) 30 ml DAILYPRN PRN PO CONSTIPATION 09/14/20 12:30 Omeprazole (PriLOSEC) 40 mg DAILY PO 09/15/20 09:00 09/18/20 07:58 Trazodone HCl (Desyrel) 50 mg QHSP PRN PO INSOMNIA 09/14/20 12:30 09/17/20 23:12 Allergies Coded Allergies: Sulfa (Sulfonamide Antibiotics) (Verified Allergy, Intermediate, HIVES/RASH, 09/14/20) povidone-iodine (Verified Allergy, Intermediate, SKIN BLISTERED, PEELED, 09/14/20) soap (Verified Allergy, Intermediate, SKIN BLISTERED, PEELED, 09/14/20) Kiwi (Verified Adverse Reaction, Intermediate, rash, 09/14/20) MARIO POLANCO MD Sep 18, 2020 13:42
[2020-09-18 16:06] VITALS: BP 137/70
[2020-09-18] MEDS: DULoxetine 30 MG CAP (CYMBALTA) PO SCH (20:34)
[2020-09-18] MEDS: traZODone 50 MG TAB PO PRN (23:27)
[2020-09-19 06:24] VITALS: BP 110/65
[2020-09-19] MEDS: busPIRone 5 MG TAB PO SCH ×2 (08:49→20:49)
[2020-09-19] MEDS: OMEPRAZOLE 20 MG CAP PO SCH (08:49)
--- NOTE | 2020-09-19 14:52 | MHIPNPDOC ---
[facility] Progress Note Progress Note DATE OF SERVICE: 09/19/20 HISTORY: * Patient reports recent breakup with s.o. of three years, which has been particularly difficult as his ex is now seeing his cousin. He reports previous h/o depression & was taking meds Rx by his PCP, however stopped a year ago because he was, "Doing great". He says that since the breakup he has been sleeping poorly, waking up at [phone], "Just thinking about it [the breaku p]". He says that he has been having difficulty concentrating on his work & in general. He admits that what began as general thoughts of suicide a couple of weeks ago, has progressed to formulating a plan for hanging. He says that only his fear of who would feed/take care of his cats, deterred him from acting on the thoughts to this point. When asked how he felt about a few days in the hospital to initiate treatment & maintain safety, patient replied, "I'd be okay with that".As per LOGISTICS PLANNING ENGINEER: Patient is a 25 -year-old Single, Employed, Domiciled male, who reports depression and suicidal ideation to hang himself after learning that his boyfriend of three years broke up with him and was seeing his cousin. 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 He states that [employer] is terminating Chat later in the year and that his position will also be eliminated. He reports that his relationship with boyfriend had been stressed lately. He and his cousin had become reacquainted when he returned to the area after he graduated from College. His boyfriend broke up with him and he didn't realize until recently that his boyfriend was romantically involved with his Cousin who had not divulged that he was gallagher. He states that his family is still processing the breakup, as well as, the Cousin coming out to the family. Patient had planned where he was going to hang himself vs not, had thought about where his cats would be (who would take care of them). Today Patient reports to me his mood is improved. His eye contact is good and his thoughts are clear. He denies suicidal or homicidal ideation VITAL SIGNS: See below. NEW TEST RESULTS: None. CURRENT MEDICATIONS: See below. MENTAL STATUS EXAMINATION: Patient is a 25-year old male, who is reporting no suicidal or homicidal ideation. Speech: Is no gross disturbance. Language skills are. No gross disturbance. Thought processes including: Improved mood. Thought content: As above. Abstract reasoning, and computation:. Ability to abstract. Description of associations:. No loose associations. Description of abnormal or psychotic thoughts: No psychotic thought. Judgment: Improved. Insight: Good. Orientation: 3. Recent and remote memory: Intact. Attention span and concentration: No disturbance. Language:. No disturbance. Fund of knowledge: Reasonable. Mood: Good. Affect: Congruent. DIAGNOSES: 1. Situational depression. 2. None. 3.. None. ASSESSMENT: As above MANAGEMENT PLAN:. As per Diana Phillips. TIME SPENT: 20 minutes. Vital Signs Vital Signs Date Time Temp Pulse Resp B/P (MAP) Pulse Ox O2 Delivery O2 Flow Rate FiO2 09/19/20 06:24 98.8 99 18 110/65 (80) 99 Room Air Current Medications Current Medications Medications (Trade) Dose Ordered Sig/Ligia Route PRN Reason Start Time Stop Time Status Last Admin Dose Admin Acetaminophen (Tylenol Tab) 650 mg Q6HP PRN PO HEADACHE or DISCOMFORT 09/14/20 12:30 Al Hydrox/Mg Hydrox/Simethicone (Mylanta) 30 ml Q4HP PRN PO HEARTBURN/INDIGESTION 09/14/20 12:30 Buspirone HCl (Buspar) 5 mg BID PO 09/15/20 09:00 09/19/20 08:49 Duloxetine HCl (Cymbalta) 20 mg QHS PO 09/15/20 21:00 09/18/20 13:33 DC 09/17/20 20:20 Duloxetine HCl (Cymbalta) 30 mg QHS PO 09/18/20 21:00 09/18/20 20:34 Home Med (Med Rec Complete!) ASDIRECTED XX 09/14/20 12:05 09/14/20 12:07 DC Hydroxyzine HCl (Atarax) 50 mg Q6HP PRN PO anxiety/agitation 09/15/20 11:30 09/16/20 09:16 Magnesium Hydroxide (Milk Of Magnesia) 30 ml DAILYPRN PRN PO CONSTIPATION 09/14/20 12:30 Omeprazole (PriLOSEC) 40 mg DAILY PO 09/15/20 09:00 09/19/20 08:49 Trazodone HCl (Desyrel) 50 mg QHSP PRN PO INSOMNIA 09/14/20 12:30 09/18/20 23:27 Allergies Coded Allergies: Sulfa (Sulfonamide Antibiotics) (Verified Allergy, Intermediate, HIVES/RASH, 09/14/20) povidone-iodine (Verified Allergy, Intermediate, SKIN BLISTERED, PEELED, 09/14/20) soap (Verified Allergy, Intermediate, SKIN BLISTERED, PEELED, 09/14/20) Kiwi (Verified Adverse Reaction, Intermediate, rash, 09/14/20) MARIO POLANCO MD Sep 19, 2020 14:52
[2020-09-19 16:12] VITALS: BP 123/73
[2020-09-19] MEDS: DULoxetine 30 MG CAP (CYMBALTA) PO SCH (20:49)
[2020-09-19] MEDS: traZODone 50 MG TAB PO PRN (22:57)
[2020-09-20 06:39] VITALS: BP 121/60
[2020-09-20] MEDS: busPIRone 5 MG TAB PO SCH (08:44)
[2020-09-20] MEDS: OMEPRAZOLE 20 MG CAP PO SCH (08:44)
[2020-09-20] MEDS ORDERED: CYMB1CAP5 PO (09:32)
[2020-09-20] MEDS ORDERED: OMEP-218 PO (09:32)
[2020-09-20] MEDS ORDERED: BUSP5TA PO (09:32)
[2020-09-20] MEDS ORDERED: TRAZ-252 PO (09:32)
[2020-09-20] MEDS ORDERED: HYDR50TA70 PO (09:32)
--- NOTE | 2020-09-20 11:11 | MHDSPDOC ---
[facility] Discharge Summary Discharge Summary DATE OF ADMISSION: Sep 14, 2020 at 12:27 DATE OF DISCHARGE: September 20, 2020 at 1105 DISCHARGE DIAGNOSES: Adjustment Disorder with Mixed Anxiety and Depressed Mood REASON FOR ADMISSION:: Patient is a 25 -year-old Single, Employed, Domiciled male, who reports depression and suicidal ideation to hang himself after learning that his boyfriend of three years broke up with him and was se eing his cousin. 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 He states that [employer] is terminating [employer] later in the year and that his position will also be eliminated. He reports that his relationship with boyfriend had been stressed lately. He and his cousin had become reacquainted when he returned to the area after he graduated from College. His boyfriend broke up with him and he didn't realize until recently that his boyfriend was romantically involved with his Cousin who had not divulged that he was gallagher. He states that his family is still processing the breakup, as well as, the Cousin coming out to the family. Patient had planned where he was going to hang himself vs not, had thought about where his cats would be (who would take care of them). PER ED REPORT: Patient reports recent breakup with his boyfriend of three years, which has been particularly difficult as his ex is now seeing his cousin. He reports previous h/o depression & was taking meds Rx by his PCP, however stopped a year ago because he was, "Doing great". He says that since the breakup he has been sleeping poorly, waking up at [id number], "Just thinking about it [the breakup]". He says that he has been having difficulty concentrating on his work & in general. He admits that what began as general thoughts of suicide a couple of weeks ago, has progressed to formulating a plan for hanging. He says that only his fear of who would feed/take care of his cats, deterred him from acting on the thoughts to this point. When asked how he felt about a few days in the hospital to initiate treatment & maintain safety, patient replied, "I'd be okay with that". CONSULTANTS INVOLVED: See Medical H + P by Hospitalist TREATMENT AND PROGRESS ON THE UNIT: Patient was admitted to the [facility] on a 39 legal status he was afforded the following treatment modalities: 1) Individual Therapy 2) Group Therapy 3) Medication Management 4) Milieu Therapy 5) Safe Environment HOSPITAL COURSE: Patient was admitted to [facility] on a 939 legal status. He had previously been on Cymbalta but took himself off of it last year. Cymbalta was started because patient had been trialed on this and was willing to restart. He was also started on Buspirone for anxiety which he reported was helping. P adri was mildly withdrawn and isolative initially on the unit, but had been observed to be slightly social with peers today. He is He reports that his depression and anxiety has decreased. He denies suicidal or homicidal ideation. He is scheduled to return to work, but the patient works remotely. He is appropriate for discharge today. DISCHARGE ASSESSMENT: In today's interview, patient is alert and oriented, pts dress is appropriate. Hygiene and grooming is well-kempt. Smiles on approach and is pleasant and engaged in the interview. Denies depression and anxiety. Denies suicidal and homicidal ideation, planning or intent. Denies and is not observed with brie, psychotic symptoms of delusions, bizarre thinking, obsessions, paranoia, ruminations illogical thoughts, flight of ideas or having poor insight and judgement. Patient has normal mentation, declines further hospitalization on a voluntary status and meets criteria for discharge today. Patient encouraged to return to hospital if his symptoms worsen or change and encouraged to call unit if he/she/they needs to speak to provider for questions regarding medications or care. MENTAL STATUS EXAMINATION ON DISCHARGE: Patient is a 25 -year-old Single, Employed, Domiciled male, who repor ts depression and suicidal ideation to hang himself after learning that his boyfriend of three years broke up with him and was seeing his cousin. Dressed appropriately, hygiene and grooming is well-kempt. Eye contact is fleeting. No observations of psychomotor agitation or retardation/ Speech: Is fluid, conversant, normal rate, tone and volume Language skills are intact Thought processes including: linear and goal oriented Thought content: reports significantly less depression and anxiety. Denies suicidal/homicidal ideation, planning or intent. Abstract reasoning, and computation: fair Description of associations: denies, none observed Description of abnormal or psychotic thoughts: denies, none observed. Judgment: good Insight: good Orientation: alert and oriented to person, place, time and situation Recent and remote memory: intact Attention span and concentration: good Language: expansive Fund of knowledge: average Mood: Euthymic Mood Affect: reactive MEDICATIONS ON DISCHARGE: See Discharge Medication Reconciliation PLAN/FOLLOWUP ARRANGEMENTS: See Correctional Officer's Notes. The amount of time spent in the coordination of care for this patient was approximately 25 minutes. ETOH/Disorder Med Rx ETOH/DRUG DISORDER RX: Offrd @ d/c & pt refused (patient does not feel that his ETOH is a problem at this time. ) Vital Signs/I&Os Vital Signs Date Time Temp Pulse Resp B/P (MAP) Pulse Ox O2 Delivery O2 Flow Rate FiO2 09/20/20 06:39 98.3 102 16 121/60 (80) 98 Room Air Medications Scheduled Buspirone HCl (Buspirone HCl) 5 Mg Tablet, 5 MG PO BID for Anxiety, #14 Duloxetine Hcl (Cymbalta) 30 Mg Capsule.dr, 30 MG PO QHS for Depression, #7 Omeprazole (Omeprazole) 20 Mg Capsule.dr, 40 MG PO DAILY for Acid Reflux, #7 Scheduled PRN Hydroxyzine HCl (Hydroxyzine HCl) 50 Mg Tablet, 50 MG PO BIDP PRN for anxie ty/agitation, #14 Trazodone HCl (Trazodone HCl) 50 Mg Tablet, 50 MG PO QHSP PRN for INSOMNIA, #7 Allergies Coded Allergies: Sulfa (Sulfonamide Antibiotics) (Verified Allergy, Intermediate, HIVES /RASH, 09/14/20) povidone-iodine (Verified Allergy, Intermediate, SKIN BLISTERED, PEELED, 09/14/20) soap (Verified Allergy, Intermediate, SKIN BLISTERED, PEELED, 09/14/20) Kiwi (Verified Adverse Reaction, Intermediate, rash, 09/14/20) PERNELL VOGT NP Sep 20, 2020 11:11
== END 2020-09-20 12:46 | disposition home or self-care (01) | DRG 755 ==
LOC: M ED 08:43 → M ED INP 12:27 → M PSY 14:50
PROVIDERS: ADMIT Psychiatry & Neurology Child & Adolescent Psychiatry; ATTEND Psychiatry & Neurology Child & Adolescent Psychiatry
DX: F43.23 Adjustment disorder with mixed anxiety and depressed mood (principal); R45.851 Suicidal ideations; Z79.899 Other long term (current) drug therapy; Z88.2 Allergy status to sulfonamides; Z88.8 Allergy status to other drugs, medicaments and biological substances; Z91.018 Allergy to other foods

== ENCOUNTER 2022-06-09 15:07 | Emergency (ER) | payer OTHER, SELFPAY ==
[~2022-06-09] VITALS: Ht 175.3 cm; Wt 77.6 kg
[~2022-06-09 15:07] MED LIST changes: +BUSP5TA PO; +CYMB1CAP5 PO; +HYDR50TA70 PO; +OMEP-173 PO; +TRAZ-252 PO
[2022-06-09] MEDS ORDERED: IBUP-1022 PO (19:28)
[2022-06-09 20:21] VITALS: BP 137/87
[2022-06-09 21:14] LABS: GC DNA AMPLIFICATION NEGATIVE (NEGATIVE)
== END 2022-06-09 20:36 | disposition home or self-care (01) ==
LOC: M ED 15:07
DX: N50.3 Cyst of epididymis (principal); N50.812 Left testicular pain; F41.9 Anxiety disorder, unspecified; F32.A Depression, unspecified; Z88.2 Allergy status to sulfonamides; Z91.018 Allergy to other foods; Z91.048 Other nonmedicinal substance allergy status; Z79.83 Long term (current) use of bisphosphonates; Z79.899 Other long term (current) drug therapy

== ENCOUNTER → 2022-08-01 | Outpatient (CLI) | payer BC ==
[~2022-08-01] MED LIST changes: +IBUP-1022 PO
[2022-08-01 13:58] LABS: BASO # 0.1 10^3/uL (0.0-0.2); BASO % 1.3 % (0.0-1.0); EOS # 0.1 10^3/uL (0.0-0.5); EOS % 1.1 % (0.0-3.0); HEMATOCRIT 46.9 % (42.0-52.0); HEMOGLOBIN 15.6 g/dl (13.5-17.5); LYMPH # 1.9 10^3/uL (1.5-5.0); LYMPH % 42.5 % (24.0-44.0); MEAN CORPUSCULAR HEMOGLOBIN 30.1 pg (27.0-33.0); MEAN CORPUSCULAR HGB CONC 33.3 g/dl (32.0-36.5); MEAN CORPUSCULAR VOLUME 90.5 fl (80.0-96.0); MONO # 0.5 10^3/uL (0.0-0.8); MONO % 9.9 % (2.0-8.0); NEUTROPHILS # 2.1 10^3/uL (1.5-8.5); PLATELET COUNT, AUTOMATED 250 10^3/uL (150-450); RED BLOOD COUNT 5.18 10^6/uL (4.30-6.10); WHITE BLOOD COUNT 4.6 10^3/uL (4.0-10.0)
[2022-08-01 14:03] LABS: ALBUMIN 4.3 G/DL (3.2-5.2); ALKALINE PHOSPHATASE 44 U/L (46-116); ALT/SGPT 26 U/L (7.0-40); AST/SGOT 23 U/L (<34); BILIRUBIN,TOTAL 0.9 MG/DL (0.3-1.2); BLOOD UREA NITROGEN 15 MG/DL (9-23); CALCIUM LEVEL 9.7 MG/DL (8.5-10.1); CARBON DIOXIDE LEVEL 31 MMOL/L (20-31); CHLORIDE LEVEL 104 MMOL/L (98-107); CHOLESTEROL LEVEL 207 MG/DL (<200); CREATININE FOR GFR 1.09 MG/DL (0.70-1.30); GLOMERULAR FILTRATION RATE > 60.0 (>60); GLUCOSE, FASTING 66 MG/DL (60-100); HDL CHOLESTEROL 64.6 MG/DL (>40); LDL CHOLESTEROL 114.8 MG/DL (<100); NON-HDL-C 142 MG/DL; POTASSIUM SERUM 4.9 MMOL/L (3.5-5.1); SODIUM LEVEL 141 MMOL/L (136-145); TOTAL PROTEIN 7.1 G/DL (5.7-8.2); TRIGLYCERIDES LEVEL 138 MG/DL (<150)
== END ==
LOC: M PLALAB 09:26
PROVIDERS: ATTEND Physician Assistant
DX: F43.23 Adjustment disorder with mixed anxiety and depressed mood (principal)

== ENCOUNTER → 2022-09-13 | Outpatient (CLI) | payer BC | LOC: M OUTALCOH 07:28 | PROVIDERS: ATTEND Psychiatry & Neurology Psychiatry | DX: F10.10 Alcohol abuse, uncomplicated (principal) ==

== ENCOUNTER 2022-09-28 16:00 | Outpatient (RCR) | payer BC | END 2022-09-29 | LOC: M OUTALCOH 16:00 | PROVIDERS: ATTEND Psychiatry & Neurology Psychiatry | DX: F10.10 Alcohol abuse, uncomplicated (principal) ==

== ENCOUNTER 2022-10-26 16:00 | Outpatient (RCR) | payer BC | END 2022-10-29 | LOC: M OUTALCOH 16:00 | PROVIDERS: ATTEND Psychiatry & Neurology Psychiatry | DX: F10.10 Alcohol abuse, uncomplicated (principal) ==

== ENCOUNTER 2022-11-22 15:53 | Outpatient (RCR) | payer BC | END 2022-11-29 | LOC: M OUTALCOH 15:53 | PROVIDERS: ATTEND Psychiatry & Neurology Psychiatry | DX: F10.10 Alcohol abuse, uncomplicated (principal) ==

== ENCOUNTER 2022-11-30 14:49 | Outpatient (RCR) | payer BC | END 2022-12-29 | LOC: M OUTALCOH 14:49 | PROVIDERS: ATTEND Psychiatry & Neurology Psychiatry | DX: F10.10 Alcohol abuse, uncomplicated (principal) ==

== ENCOUNTER → 2023-03-02 | Outpatient (CLI) | payer BC ==
[2023-03-02 15:09] LABS: BASO # 0.1 10^3/uL (0.0-0.2); BASO % 1.1 % (0.0-1.0); EOS % 0.6 % (0.0-3.0); HEMATOCRIT 51.2 % (42.0-52.0); HEMOGLOBIN 16.9 g/dl (13.5-17.5); LYMPH # 1.9 10^3/uL (1.5-5.0); LYMPH % 34.6 % (24.0-44.0); MEAN CORPUSCULAR HEMOGLOBIN 29.8 pg (27.0-33.0); MEAN CORPUSCULAR VOLUME 90.3 fl (80.0-96.0); MONO # 0.5 10^3/uL (0.0-0.8); MONO % 9.4 % (2.0-8.0); NEUTROPHILS # 2.9 10^3/uL (1.5-8.5); NEUTROPHILS % 53.9 % (36.0-66.0); PLATELET COUNT, AUTOMATED 240 10^3/uL (150-450); RED BLOOD COUNT 5.67 10^6/uL (4.30-6.10); WHITE BLOOD COUNT 5.3 10^3/uL (4.0-10.0)
[2023-03-02 15:28] LABS: C REACTIVE PROTEIN QUANTITATIV < 0.40 MG/DL (<1.0)
[2023-03-02 15:29] LABS: LIPASE 32 U/L (12-53)
[2023-03-02 15:31] LABS: ALKALINE PHOSPHATASE 43 U/L (46-116); ALT/SGPT 19 U/L (7.0-40); AST/SGOT 11 U/L (<34); BILIRUBIN,TOTAL 1.1 MG/DL (0.3-1.2); BLOOD UREA NITROGEN 12 MG/DL (9-23); CALCIUM LEVEL 9.8 MG/DL (8.5-10.1); CARBON DIOXIDE LEVEL 27 MMOL/L (20-31); CHLORIDE LEVEL 102 MMOL/L (98-107); CREATININE FOR GFR 1.13 MG/DL (0.70-1.30); GLOMERULAR FILTRATION RATE > 60.0 (>60); GLUCOSE, FASTING 86 MG/DL (60-100); POTASSIUM SERUM 4.5 MMOL/L (3.5-5.1); SODIUM LEVEL 140 MMOL/L (136-145); THYROID STIMULATING HORMONE 2.315 uIU/ML (0.55-4.78); TOTAL PROTEIN 7.7 G/DL (5.7-8.2)
[2023-03-02 15:32] LABS: FREE T4 1.19 NG/DL (0.89-1.76)
[2023-03-02 16:03] LABS: ERYTHROCYTE SEDIMENTATION RATE 4 mm/hr (0-15)
[2023-03-03 14:10] LABS: H PYLORI SERUM QUANT IgG ABY 1.28 (0.00-0.79); TISSUE TRANSGLUTAMINASE IgA <2 U/mL (0-3)
== END ==
LOC: M PLALAB 09:30
PROVIDERS: ATTEND Physician Assistant
DX: R10.84 Generalized abdominal pain (principal); R10.32 Left lower quadrant pain; R63.4 Abnormal weight loss

== ENCOUNTER → 2023-09-05 | Outpatient (CLI) | payer BC | LOC: M PLAIMG 09:12 | PROVIDERS: ATTEND Physician Assistant | DX: M54.2 Cervicalgia (principal); M47.892 Other spondylosis, cervical region ==

== ENCOUNTER 2025-02-11 07:21 | Emergency (ER) | payer OTHER ==
[~2025-02-11] VITALS: Ht 175.3 cm; Wt 81.1 kg
[2025-02-11] MEDS: PROPARACAINE 0.5% OPHTH SOL 15ML OS ONE (12:56)
[2025-02-11] MEDS: FLUORESCEIN OPHTH 1 MG STRIP OS ONE (13:57)
[2025-02-11 14:14] VITALS: BP 138/84; TEMP 98.3; O2SAT 100
== END 2025-02-11 14:19 | disposition home or self-care (01) ==
LOC: M ED 07:21
DX: H53.142 Visual discomfort, left eye (principal); F41.9 Anxiety disorder, unspecified; F32.A Depression, unspecified; Z79.1 Long term (current) use of non-steroidal anti-inflammatories (NSAID); Z79.2 Long term (current) use of antibiotics; Z88.2 Allergy status to sulfonamides; Z91.018 Allergy to other foods; Z91.048 Other nonmedicinal substance allergy status

== ENCOUNTER → 2025-02-20 | Outpatient (CLI) | payer OTHER ==
[~2025-02-20] MED LIST changes: -IBUP-1022 PO; +IBUP600T42 PO
[2025-02-20 15:04] LABS: CARBON DIOXIDE LEVEL 28.0 MMOL/L (20-31); CHLORIDE LEVEL 106.0 MMOL/L (98-107); POTASSIUM SERUM 4.6 MMOL/L (3.5-5.1); SODIUM LEVEL 142.0 MMOL/L (136-145)
[2025-02-20 15:09] LABS: PLATELET COUNT, AUTOMATED 246 10^3/uL (150-450)
== END ==
LOC: M PLALAB 08:50
PROVIDERS: ATTEND Orthopaedic Surgery
DX: Z01.812 Encounter for preprocedural laboratory examination (principal); M48.02 Spinal stenosis, cervical region

== ENCOUNTER → 2025-02-20 | Outpatient (CLI) | payer OTHER ==
[2025-02-20 15:16] LABS: ALT/SGPT 24 U/L (7.0-40); AST/SGOT 18 U/L (<34); CHOLESTEROL LEVEL 245 MG/DL (<200); CHOLESTEROL RISK RATIO 4.71 (<5); FREE T4 1.34 NG/DL (0.89-1.76); LDL CHOLESTEROL 160.0 MG/DL (<100); NON-HDL-C 193.0 MG/DL; TRIGLYCERIDES LEVEL 165 MG/DL (<150)
[2025-02-20 15:27] LABS: ESTIMATED AVERAGE GLUCOSE 97.0 MG/DL (60-110)
[2025-02-20 15:42] LABS: HIV 1&2 SCREEN NEGATIVE (NEGATIVE)
[2025-02-20 15:49] LABS: HEP C VIRUS AB INDEX SOURCE PT < 0.0 INDEX (0.0-0.8)
[2025-02-20 16:03] LABS: Trichomonas vaginalis (AMP) NOT DETECTED (NEGATIVE)
[2025-02-20 16:27] LABS: GC DNA AMPLIFICATION NEGATIVE (NEGATIVE)
== END ==
LOC: M PLALAB 08:28
PROVIDERS: ATTEND Nurse Practitioner Family
DX: Z13.220 Encounter for screening for lipoid disorders (principal); Z11.3 Encounter for screening for infections with a predominantly sexual mode of transmission; Z13.29 Encounter for screening for other suspected endocrine disorder; Z13.1 Encounter for screening for diabetes mellitus; Z11.4 Encounter for screening for human immunodeficiency virus [HIV]